=== PATIENT | female | born 1985 | race Caucasian/White ===

== ENCOUNTER → 2017-03-29 08:16 | Outpatient (CLI) | payer MEDICAID, SELFPAY ==
[2017-03-29 10:30] LABS: Microalbumin,Random Urine 6.1 mg/L (NO RANGE EST.); Microalbumin:Creatinine Ratio 6.7 mg/g CRE (<30 mg/g CRE)
[2017-03-29 10:37] LABS: Hemoglobin A1c 8.5 % (4.2-6.3)
[2017-03-29 10:50] LABS: ALB/GLOB Ratio 0.8 RATIO (0.9-2.4); AST(SGOT) 10 U/L (15-37); Alanine Aminotransfer ALT/SGPT 19 U/L (13-56); Albumin, Serum 3.3 g/dL (3.2-5.0); Alkaline Phosphatase 87 U/L (45-117); Anion Gap 10 (5-15); BUN 11 mg/dL (7-18); BUN/Creat Ratio 15.8 RATIO (10-20); Calcium,Total 8.5 mg/dL (8.5-10.1); Chloride 104 mmol/L (98-107); Cholesterol 207 mg/dL (200); EST Glomerular Filtration Rate 103 mL/min (>60); Est Glom Filt Rate - Afr Amer 124 mL/min (>60); Glucose 109 mg/dL (74-106); High Density Lipoprotein 58 mg/dL; Potassium 4.3 mmol/L (3.5-5.1); Protein, Total 7.3 g/dL (6.4-8.2); Sodium Level 141 mmol/L (136-145); Thyroid Stim Hormone (TSH) 2.46 uIU/mL (0.358-3.74); Triglycerides 72 mg/dL; Very Low Density Lipoprotein 14 mg/dL (5-40)
== END ==
PROVIDERS: Family Provider Internal Medicine; PCP Internal Medicine; Visit Provider Nurse Practitioner
DX: E10.65 Type 1 diabetes mellitus with hyperglycemia (principal)
CPT/HCPCS: 36415; 80053; 80061; 82043; 82570; 83036; 84443

== ENCOUNTER → 2024-03-14 | Outpatient (CLI) | payer OTHER, SELFPAY ==
[2024-03-14 17:07] LABS: Absolute Lymphocyte Count 0.49 X10^3/uL (0.83-4.51); Absolute Neutrophil Count 3.3 X10^3/uL (2.0-7.7); Basophil# 0.03 X10^3/uL; Basophil% 0.7 % (0-1); Eosinophil# 0.08 X10^3/uL; Eosinophils% 1.8 % (0-5); Hematocrit 44.5 % (37-47); Hemoglobin 14.7 g/dL (12.0-15.0); Lymphocyte # 0.49 X10^3/ul (0.83-4.51); Lymphocyte % 10.9 % (19-41); Mean Corpuscular Hgb 28.5 pg (27.0-32.0); Mean Corpuscular Volume 86.4 fL (81-99); Mean Platelet Vol. 12.6 fl (6.2-12.0); Monocyte# 0.56 X10^3/uL; Monocyte% 12.4 % (0-10); NRBC Flagged by Analyzer 0 % (0-5); Neutrophil # 3.34 X10^3/uL (2.7-7.7); POSITIVE DIFFERENTIAL YES; Platelet Count 224 K/mm3 (150-450); RBC Distribution Width SD 40.7 fl (35.1-43.9); Red Blood Count 5.15 M/mm3 (4.2-5.4); White Blood Count 4.5 K/mm3 (4.4-11.0)
[2024-03-14 17:22] LABS: Rheumatoid Factor < 10.0 IU/mL (<15)
[2024-03-14 17:33] LABS: Erythrocyte Sedimentation Rate 20 mm/hr (0-30)
[2024-03-16 12:08] LABS: CCP IgG Antibodies 14 units (0-19)
[2024-03-18 14:07] LABS: ANTINUCLEAR ANTIBODIES DIRECT Negative (Negative)
== END | disposition home or self-care (01) ==
PROVIDERS: PCP Internal Medicine; Visit Provider Internal Medicine
DX: E10.65 Type 1 diabetes mellitus with hyperglycemia (principal); M19.90 Unspecified osteoarthritis, unspecified site
CPT/HCPCS: 36415; 85025; 85652; 86038; 86140; 86200; 86225; 86235; 86431; 87631

== ENCOUNTER → 2024-04-24 | Outpatient (CLI) | payer OTHER, SELFPAY ==
[2024-04-30 22:07] LABS: HPV APTIMA, High Risk Negative (Negative)
== END | disposition home or self-care (01) ==
LOC: LABSPEC 14:41
PROVIDERS: PCP Internal Medicine; Referring Provider Nurse Practitioner Family; Visit Provider Nurse Practitioner Family
DX: N89.8 Other specified noninflammatory disorders of vagina (principal); Z12.4 Encounter for screening for malignant neoplasm of cervix
CPT/HCPCS: 87070; 87205; 87624; 88175; G0145

== ENCOUNTER → 2024-04-25 | Outpatient (CLI) | payer OTHER, SELFPAY ==
--- NOTE | 2024-04-25 12:00 | BI_ITS ---
EXAM: SCRN MAMM (CAD)W/KIM BILAT DATE: 04/25/2024 CLINICAL HISTORY: F, Age 38 y/o , BREAST CANCER SCREENING BREAST CANCER RISK ASSESSMENT: Not assessed. TECHNIQUE: Bilateral screening digital breast tomosynthesis with 2D and 3D images. Computer aided detection. COMPARISON: Baseline study. FINDINGS: Bilateral Breast Mammographic Findings: No significant masses, calcifications or other abnormalities are identified. TISSUE DENSITY: The breast tissue is heterogenously dense, which may obscure small masses. No suspicious masses, areas of developing architectural distortion, or suspicious calcifications. BI/SCRN MAMM (CAD)W/KIM BILAT IMPRESSION: Right Breast: BIRADS 1 NEGATIVE. Left Breast: BIRADS 1 NEGATIVE. OVERALL FINAL ASSESSMENT: BIRADS 1 NEGATIVE RECOMMENDATION: ROUTINE ANNUAL FOLLOW-UP Bilateral in 1 Year Normal interval followup mammograms are recommended in 12 months. A letter with findings and recommendations will be mailed to the patient. Reading Location: [place] [id number]
== END | disposition home or self-care (01) ==
LOC: OPBI 11:41
PROVIDERS: PCP Internal Medicine; Referring Provider Nurse Practitioner Family; Visit Provider Nurse Practitioner Family
DX: Z12.31 Encounter for screening mammogram for malignant neoplasm of breast (principal)
CPT/HCPCS: 77063; 77067

== ENCOUNTER 2024-11-18 19:08 | Emergency (ER) | payer SELFPAY ==
[2024-11-18 19:09] VITALS: BP 176/91; PULSE 72; RESP 18; TEMP 36.8; O2SAT 98; BMI 28.5
[2024-11-18 21:09] VITALS: BP 154/102; PULSE 65; RESP 18; O2SAT 98
--- NOTE | 2024-11-18 22:15 | EX.ED.DYSGE1 ---
HPI History of Present Illness Chief Complaint: Hypertension Informant: patient Narrative Narrative: Patient is a 38-year-old female with past medical history of type 1 diabetes and hyperlipidemia. She states over the past 1 to 2 weeks she had congestion drainage and cough. She reports that those symptoms have improved however over the past 5 to 7 days she has had persistent left-sided ear pain/discomfort. She denies any trauma to the ear. She states there is been no blood or discharge present. She states during this time she has been checking her vitals and she denies any fever or elevated heart rate but states her blood pressure has been elevated. She states that she was simply taking DayQuil and denies any decongestant use which could have elevated her blood pressure. She also denies any excessive stimulant use or illicit drug use. However because of her persistent left ear pain and the fact she has been having readings of hypertension she presents for evaluation Patient does state that there is no change in vision headache chest pain abdominal pain or shortness of breath associated with this. [facility] Medical History Yovana's disease Breast cyst GERD (gastroesophageal reflux disease) Neuropathy Kidney stones Elevated C-reactive protein (CRP) Upper respiratory infection Arthritis Vitamin deficiency Vision problem High cholesterol Headache Diabetes type 1, controlled UTI (urinary tract infection) Seasonal allergies Home Medications ?Medication ?Instructions ?Recorded ?Last Taken ?Type blood sugar diagnostic (FreeStyle #100 ea 03/14/17 Unknown Rx Lite Strips) insulin glargine 100 unit/mL 50 unit subcut QPM 03/14/24 Unknown History subcutaneous cartridge insulin lispro 100 unit/mL 1 sliding scale dose subcut 03/14/24 Unknown History subcutaneous pen (Humalog KwikPen USEASDIRECTD (U-100) Insulin) metformin 500 mg tablet 500 mg PO BID 03/14/24 Unknown History levothyroxine 25 mcg tablet 12.5 mcg PO QAM 04/24/24 Unknown History lisinopril 20 mg tablet 20 mg PO DAILY 30 days #30 tabs 11/18/24 Unknown Rx Allergy/AdvReac Type Severity Reaction Status Date / Time prochlorperazine (From AdvReac Other Verified 11/18/24 19:10 Compazine) Family History Mother Anesthesia complication Anxiety Asthma Rheumatoid arthritis Scleroderma Lung disease Thyroid disorder Osteoporosis High cholesterol Cervical cancer Depression Skin cancer Sister Anxiety Depression Daughter Diabetes Grandfather Myocardial infarction High cholesterol Grandmother High cholesterol Father Liver disease hep c Surgical History Hx of appendectomy Social History household members: children housing: house current occupational status: employed current occupation: [employer] Smoking Status: Former smoker alcohol intake: current alcohol intake frequency: a few times a month substance use type: does not use what type of physical activity do you participate in: bicycling frequency: 1-2 times per week ROS ROS ED Constitutional Constitutional ED: Denies chills or fever(s) Eyes Eyes: Denies change in vision ENT ENT ED: Reports ear pain left and rhinorrhea; Denies sore throat Cardiovascular Cardiovascular: Denies chest pain, palpitations or racing heartbeat Respiratory/Chest Respiratory/Chest: Denies cough or dyspnea Gastrointestinal Gastrointestinal: Denies abdominal pain, diarrhea, nausea or vomiting Musculoskeletal Musculoskeletal: Denies back pain Integumentary Denies rash Neurologic Neurologic: Denies headache(s), paresthesias or weakness Hematologic/Lymphatic Hematologic/Lymphatic: Denies easy bleeding or easy bruising EXAM Physical Exam Const Vital Signs: 11/18/24 19:09 11/18/24 21:09 11/18/24 22:26 Temperature 98.3 F 98.6 F Temperature Source Oral Pulse Rate 72 65 78 Respiratory Rate 18 18 18 Blood Pressure 176/91 H 154/102 H 143/88 H Blood Pressure Mean 119 119 106 Pulse Ox 98 98 99 Oxygen Delivery Method Room Air Room Air Positive well nourished, well developed and obese General Appearance ED: well developed; Negative for pallor Nutritional Appearance: obese HEENT HEENT Narrative: Normocephalic atraumatic Nasal mucosa is hyperemic and boggy with enlarged inferior nasal turbinates left greater than right Bilateral ear canals are normal Right TM is normal. Left TM is retracted consistent with eustachian tube dysfunction but does not display secondary findings consistent with infection No pain to palpation over top either mastoid region Eyes PERRL and EOMs intact bilaterally General Eye ED: Negative for scleral icterus Neck supple Neck Narrative: No nuchal rigidity or meningeal signs Resp normal respiratory effort and clear to auscultation bilaterally Cardio regular rate and regular rhythm Rate: other Other Details: Heart is regular rate and rhythm without murmurs rubs or gallops Radial and carotid pulses are equal and symmetric No carotid bruit noted GI normal to inspection, nondistended, normoactive bowel sounds, non-tender, non-distended and no masses GI Narrative: No voluntary guarding or rigidity or pulsatile mass Auscultation: normoactive bowel sounds Palpation: soft Extremity normal to inspection Extremity Narrative: No asymmetric edema no pitting edema negative Homans' sign bilaterally Neuro oriented x3, CN's II-XII intact bilaterally and no sensory deficits noted Neuro Narrative: GCS of 15 Cranial nerves II to XII are grossly intact without focal neurologic deficit No pronator drift no dysmetria no truncal ataxia NIH stroke scale score of 0 Sensorium / Orientation: alert Motor Exam: strength 5/5 throughout Psych mental status grossly normal Skin no rashes or lesions noted General Skin Exam: Negative for jaundice or pallor MDM MDM MDM Narrative Medical decision making narrative: Patient arrived to the ER hypertensive otherwise with stable vitals. By physical exam she has no findings of endorgan damage. With her reported left ear discomfort following reports of congestion and drainage there was concern that she had a eustachian tube dysfunction versus earwax impaction versus otitis media. By physical exam she has eustachian tube dysfunction. We discussed potential steroids to help treat this but as she is a diabetic that would elevate her blood sugar and would also cause continued elevation of her blood pressure and therefore we decided to elect for symptomatic treatment such as Afrin nasal spray and chewing gum. With the patient's hypertension we discussed this could be related to her recent illness and persistent pain. I discussed with the patient that the safest option is to check for signs of endorgan damage such as acute kidney injury or cardiac ischemia doing blood work and an EKG. as she does not have a headache or neurologic findings concern for a spontaneous subarachnoid or subdural hemorrhage is low and I feel no need for head CT. The patient states that as my physical exam does not suggest she has any findings of endorgan damage that she would prefer not to undergo any type of testing. The patient was given 0.2 mg of oral clonidine secondary to hypertension and the blood pressure did reduce between 15 and 25% which is the goal reduction in the ER. I will start the patient on once daily lisinopril for continued blood pressure control and she states she will keep a blood pressure journal and follow-up with her family doctor to discuss if she needs to continue medication. However at this time her neurologic exam is normal she does not have any physical exam findings of endorgan damage and her blood pressure has improved and therefore there is no need for further workup and she is otherwise safe for discharge History & Record Review Discussion w/independent historian: Patient Discharge Plan Triage Chief Complaint: Hypertension ED Provider: Josh Sweeney Dx/Rx/DC Orders Clinical Impression: Hypertension, Acute dysfunction of left eustachian tube, Type 1 diabetes mellitus, Hyperlipidemia Instructions: Eustachian Tube Problems, ED Hypertension, To Be Confirmed Prescriptions: New lisinopril 20 mg tablet 20 mg PO DAILY 30 Days Qty: 30 1RF No Action (DME) blood sugar diagnostic [FreeStyle Lite Strips] strip See Dose Instructions .ROUTE .MEDSUPPLY Qty: 100 11RF Dose Instruction: As directed Rx Instructions: use to check BG tid metformin 500 mg tablet 500 mg PO BID insulin glargine 100 unit/mL cartridge 50 unit subcut QPM insulin lispro [Humalog KwikPen Insulin] 100 unit/mL insulin pen 1 sliding scale dose subcut USEASDIRECTD levothyroxine 25 mcg tablet 12.5 mcg PO QAM Primary Care Provider: Ryder Thompson Referrals: Ryder Thompson MD [Primary Care Provider, Internal Medicine] Activity Restrictions/Additional Instructions: The pressure in your left ear is related to eustachian tube dysfunction. There is no sign of infection or wax blockage. Please chew gum and use Afrin nasal spray twice a day for the next 3 days to try and help open the eustachian tube up and resolve your pain/symptoms. Begin taking the lisinopril for your blood pressure. Continue to keep a blood pressure journal where you check your blood pressure and heart rate once a day or every other day. If you develop severe headache dizziness/passing out change in vision chest pain or abdominal pain then please return to the ER for repeat evaluation Print Language: Kinyarwanda Disposition Disposition: Home, Self Care Discharge Date/Time: 11/18/24 22:27
[2024-11-18 22:26] VITALS: BP 143/88; PULSE 78; RESP 18; TEMP 37; O2SAT 99
== END 2024-11-18 22:27 | disposition home or self-care (01) ==
PROVIDERS: Emergency Provider Emergency Medicine; PCP Internal Medicine; Visit Provider Emergency Medicine
DX: I10 Essential (primary) hypertension (principal); E10.40 Type 1 diabetes mellitus with diabetic neuropathy, unspecified; Z79.4 Long term (current) use of insulin; H69.92 Unspecified Eustachian tube disorder, left ear; Z83.3 Family history of diabetes mellitus; E78.5 Hyperlipidemia, unspecified; Z87.891 Personal history of nicotine dependence; H92.02 Otalgia, left ear; E66.9 Obesity, unspecified
CPT/HCPCS: 99282